=== PATIENT | female | born 1955 | race African-American/Black ===

== ENCOUNTER 2020-09-07 07:18 | Inpatient (IN) | payer MEDICARE ==
[2020-09-07] MEDS ORDERED: SODIUM CHLORIDE 0.9% 1,000 ML IV STA (07:20)
[2020-09-07 07:31] LABS: Glucose,Whole Blood 584 mg/dL (75-99)
[2020-09-07 07:50] LABS: Basophils % (A) 0 %; Eosinophils % (A) 0 %; HCT 43.7 % (34.0-46.0); HGB 13.1 gm/dL (11.4-16.0); Hypochromasia Marked; Lymphocytes # (A) 0.9 k/uL (1.0-4.8); Lymphocytes % (A) 7 %; MCHC 30.1 g/dL (31.0-37.0); Macrocytosis Slight; Mean Platelet Volume 8.8; Monocytes # (A) 0.3 k/uL (0-1.0); Monocytes % (A) 2 %; Neutrophils # (A) 11.7 k/uL (1.3-7.7); Neutrophils % (A) 89 %; Platelet Count 365 k/uL (150-450); RBC 4.24 m/uL (3.80-5.40); RDW 13.6 % (11.5-15.5); WBC 13.1 k/uL (3.8-10.6)
--- NOTE | 2020-09-07 07:52 | ED ---
General Adult HPI - General Chief complaint: Recheck/Abnormal Lab/Rx Stated complaint: hyperglycemia Time Seen by Provider: 09/07/20 07:19 Source: patient, RN notes reviewed, old records reviewed Mode of arrival: EMS Limitations: altered mental status - History of Present Illness Initial comments: 65-year-old female presenting with elevated blood sugar, nausea vomiting. Patient was transported by EMS, noted to be tachypneic, tachycardic and hypertensive. She states that her sugars have been running high over the past several days she's had nausea and vomiting. Detailed history is not possible secondary to patient's clinical status upon arrival. She is in moderate to severe distress. - Related Data Home Medications Medication Instructions Recorded Confirmed Atorvastatin [Lipitor] 20 mg PO HS 09/07/20 09/07/20 INSULIN ASPART (NovoLOG) [NovoLOG See Protocol SQ ACHS 09/07/20 09/07/20 (formulary)] Insulin Glargine [Lantus] 20 unit SQ HS 09/07/20 09/07/20 Losartan [Cozaar] 25 mg PO BID 09/07/20 09/07/20 Metoprolol Tartrate [Lopressor] 50 mg PO BID 09/07/20 09/07/20 Allergies Allergy/AdvReac Type Severity Reaction Status Date / Time No Known Allergies Allergy Verified 09/07/20 08:17 Review of Systems ROS Statement: Those systems with pertinent positive or pertinent negative responses have been documented in the HPI. ROS Other: All systems not noted in ROS Statement are negative. Past Medical History Past Medical History: Diabetes Mellitus History of Any Multi-Drug Resistant Organisms: None Reported Past Surgical History: No Surgical Hx Reported Smoking Status: Current every day smoker Past Alcohol Use History: None Reported Past Drug Use History: None Reported General Exam Limitations: no limitations General appearance: alert, in distress Head exam: Present: atraumatic, normocephalic Eye exam: Present: normal appearance, PERRL ENT exam: Present: mucous membranes dry Neck exam: Present: normal inspection. Absent: tenderness, meningismus Respiratory exam: Present: respiratory distress, other (Tachypnea With good air entry). Absent: wheezes Cardiovascular Exam: Present: normal rhythm, tachycardia GI/Abdominal exam: Present: soft. Absent: distended, tenderness, guarding Extremities exam: Present: normal inspection, normal capillary refill. Absent: pedal edema, calf tenderness Neurological exam: Present: alert. Absent: motor sensory deficit Skin exam: Present: warm, dry, intact. Absent: cyanosis, diaphoretic Course Vital Signs 09/07/20 09/07/20 09/07/20 07:29 07:50 08:18 Temperature 95.4 F L 96.7 F L Pulse Rate 94 94 Respiratory 26 H 32 H Rate Blood Pressure 204/81 210/78 O2 Sat by Pulse 100 100 Oximetry EKG Findings - EKG Comments: EKG Findings:: EKG: Normal sinus rhythm, biatrial enlargement, peak T waves in the precordial leads, rate of 95, OK interval 156, QRS duration 82, QTC [address] segment elevation. Medical Decision Making - Medical Decision Making 65-year-old female presenting with elevated blood sugar, nausea vomiting. History is limited because the patient is in extremis. Patient has significant lab abnormalities suggestive of severe DKA. She has an elevated blood glucose 620. She has a venous pH of 7.0. She has a nondetectable CO2, lactic acid 5.4. She has a mixed acidosis both lactic acidosis and diabetic ketoacidosis. Patient bolused with normal saline, started on to her cc an hour, started on insulin. She additionally does have a potassium of 6.5 which is treated with insulin and normal saline. I did discuss case with Dr. Nicholson who will admit. Additionally the pulmonary mlt is aware Dr. Fitzgerald patient will be admitted to the ICU. X-ray is clear, no focal pneumonia or acute findings. Repeat laboratory testing has been ordered. - Lab Data Result diagrams: 09/07/20 07:32 09/07/20 07:32 Lab Results 09/07/20 09/07/20 09/07/20 Range/Units 07:25 07:32 07:32 WBC 13.1 H (3.8-10.6) k/uL RBC 4.24 (3.80-5.40) m/uL Hgb 13.1 (11.4-16.0) gm/dL Hct 43.7 (34.0-46.0) % MCV 103.0 H (80.0-100.0) fL MCH 31.0 (25.0-35.0) pg MCHC 30.1 L (31.0-37.0) g/dL RDW 13.6 (11.5-15.5) % Plt Count 365 (150-450) k/uL MPV 8.8 Neutrophils % 89 % Lymphocytes % 7 % Monocytes % 2 % Eosinophils % 0 % Basophils % 0 % Neutrophils # 11.7 H (1.3-7.7) k/uL Lymphocytes # 0.9 L (1.0-4.8) k/uL Monocytes # 0.3 (0-1.0) k/uL Eosinophils # 0.0 (0-0.7) k/uL Basophils # 0.0 (0-0.2) k/uL Hypochromasia Marked Macrocytosis Slight PT (9.0-12.0) sec INR (<1.2) APTT (22.0-30.0) sec VBG pH 7.00 L* (7.31-7.41) VBG pCO2 14 L* (37-51) mmHg VBG HCO3 3 L* (24-28) mmol/L Sodium (137-145) mmol/L Potassium (3.5-5.1) mmol/L Chloride (98-107) mmol/L Carbon Dioxide (22-30) mmol/L Anion Gap mmol/L BUN (7-17) mg/dL Creatinine (0.52-1.04) mg/dL Est GFR (CKD-EPI)AfAm (>60 ml/min/1.73 sqM) Est GFR (CKD-EPI)NonAf (>60 ml/min/1.73 sqM) Glucose (74-99) mg/dL POC Glucose (mg/dL) 584 H (75-99) mg/dL POC Glu Skein Dyer ID Reyna Tello Plasma Lactic Acid Cassius (0.7-2.0) mmol/L Calcium (8.4-10.2) mg/dL Magnesium (1.6-2.3) mg/dL Total Bilirubin (0.2-1.3) mg/dL AST (14-36) U/L ALT (4-34) U/L Alkaline Phosphatase (38-126) U/L Troponin I (0.000-0.034) ng/mL Total Protein (6.3-8.2) g/dL Albumin (3.5-5.0) g/dL Acetone, Qual (Negative) 09/07/20 09/07/20 09/07/20 Range/Units 07:32 07:32 07:32 WBC (3.8-10.6) k/uL RBC (3.80-5.40) m/uL Hgb (11.4-16.0) gm/dL Hct (34.0-46.0) % MCV (80.0-100.0) fL MCH (25.0-35.0) pg MCHC (31.0-37.0) g/dL RDW (11.5-15.5) % Plt Count (150-450) k/uL MPV Neutrophils % % Lymphocytes % % Monocytes % % Eosinophils % % Basophils % % Neutrophils # (1.3-7.7) k/uL Lymphocytes # (1.0-4.8) k/uL Monocytes # (0-1.0) k/uL Eosinophils # (0-0.7) k/uL Basophils # (0-0.2) k/uL Hypochromasia Macrocytosis PT 9.3 (9.0-12.0) sec INR 0.8 (<1.2) APTT 20.8 L (22.0-30.0) sec VBG pH (7.31-7.41) VBG pCO2 (37-51) mmHg VBG HCO3 (24-28) mmol/L Sodium 138 (137-145) mmol/L Potassium 6.5 H* (3.5-5.1) mmol/L Chloride 105 (98-107) mmol/L Carbon Dioxide <5 L* (22-30) mmol/L Anion Gap mmol/L BUN 23 H (7-17) mg/dL Creatinine 1.07 H (0.52-1.04) mg/dL Est GFR (CKD-EPI)AfAm 64 (>60 ml/min/1.73 sqM) Est GFR (CKD-EPI)NonAf 55 (>60 ml/min/1.73 sqM) Glucose 622 H* (74-99) mg/dL POC Glucose (mg/dL) (75-99) mg/dL POC Glu Skein Dyer ID Plasma Lactic Acid Cassius 5.4 H* (0.7-2.0) mmol/L Calcium 9.8 (8.4-10.2) mg/dL Magnesium 2.7 H (1.6-2.3) mg/dL Total Bilirubin 0.4 (0.2-1.3) mg/dL AST 58 H (14-36) U/L ALT 36 H (4-34) U/L Alkaline Phosphatase 189 H (38-126) U/L Troponin I (0.000-0.034) ng/mL Total Protein 6.5 (6.3-8.2) g/dL Albumin 3.4 L (3.5-5.0) g/dL Acetone, Qual Positive (Negative) 09/07/20 09/07/20 Range/Units 07:32 08:56 WBC (3.8-10.6) k/uL RBC (3.80-5.40) m/uL Hgb (11.4-16.0) gm/dL Hct (34.0-46.0) % MCV (80.0-100.0) fL MCH (25.0-35.0) pg MCHC (31.0-37.0) g/dL RDW (11.5-15.5) % Plt Count (150-450) k/uL MPV Neutrophils % % Lymphocytes % % Monocytes % % Eosinophils % % Basophils % % Neutrophils # (1.3-7.7) k/uL Lymphocytes # (1.0-4.8) k/uL Monocytes # (0-1.0) k/uL Eosinophils # (0-0.7) k/uL Basophils # (0-0.2) k/uL Hypochromasia Macrocytosis PT (9.0-12.0) sec INR (<1.2) APTT (22.0-30.0) sec VBG pH (7.31-7.41) VBG pCO2 (37-51) mmHg VBG HCO3 (24-28) mmol/L Sodium (137-145) mmol/L Potassium (3.5-5.1) mmol/L Chloride (98-107) mmol/L Carbon Dioxide (22-30) mmol/L Anion Gap mmol/L BUN (7-17) mg/dL Creatinine (0.52-1.04) mg/dL Est GFR (CKD-EPI)AfAm (>60 ml/min/1.73 sqM) Est GFR (CKD-EPI)NonAf (>60 ml/min/1.73 sqM) Glucose (74-99) mg/dL POC Glucose (mg/dL) 555 H (75-99) mg/dL POC Glu Skein Dyer ID ZactgReyna gonzalez Plasma Lactic Acid Cassius (0.7-2.0) mmol/L Calcium (8.4-10.2) mg/dL Magnesium (1.6-2.3) mg/dL Total Bilirubin (0.2-1.3) mg/dL AST (14-36) U/L ALT (4-34) U/L Alkaline Phosphatase (38-126) U/L Troponin I 0.013 (0.000-0.034) ng/mL Total Protein (6.3-8.2) g/dL Albumin (3.5-5.0) g/dL Acetone, Qual (Negative) Critical Care Time Critical Care Time: Yes Total Critical Care Time: 35 Disposition Clinical Impression: Diabetic ketoacidosis, Hyperkalemia, Dehydration, Lactic acidosis Disposition: ADMITTED IP TO THIS [facility] Condition: Serious Is patient prescribed a controlled substance at d/c from ED?: No Referrals: None,Stated [Primary Care Provider] - 1-2 days Decision to Admit Reason: Admit from EC Decision Date: 09/07/20 Decision Time: 09:03
[2020-09-07] MEDS ORDERED: cefTRIAXone IN SWFI 1,000 MG/10 ML SYRINGE IVP STA (07:57)
[2020-09-07 08:02] LABS: Chloride 105 mmol/L (98-107)
[2020-09-07] MEDS ORDERED: SODIUM CHLORIDE 0.9% 1,000 ML IV ONE (08:03)
[2020-09-07 08:05] LABS: ALT 36 U/L (4-34); AST 58 U/L (14-36); African American GFR (CKD) 64 (>60 ml/min/1.73 sqM); Albumin 3.4 g/dL (3.5-5.0); Alkaline Phosphatase 189 U/L (38-126); Blood Urea Nitrogen 23 mg/dL (7-17); Calcium 9.8 mg/dL (8.4-10.2); Magnesium 2.7 mg/dL (1.6-2.3); Non-African American GFR(CKD) 55 (>60 ml/min/1.73 sqM); Sodium 138 mmol/L (137-145); Total Bilirubin 0.4 mg/dL (0.2-1.3); Total Protein 6.5 g/dL (6.3-8.2)
[2020-09-07 08:08] LABS: INR 0.8 (<1.2); Prothrombin Time 9.3 sec (9.0-12.0)
[2020-09-07 08:15] LABS: Partial Thromboplastin Time 20.8 sec (22.0-30.0)
[2020-09-07 08:25] LABS: Glucose 622 mg/dL (74-99); Potassium 6.5 mmol/L (3.5-5.1)
[2020-09-07 08:26] LABS: Carbon Dioxide <5 mmol/L (22-30)
--- NOTE | 2020-09-07 08:35 | XR ---
EXAMINATION TYPE: XR chest 1V portable DATE OF EXAM: 09/07/2020 COMPARISON: NONE HISTORY: Difficulty breathing TECHNIQUE: Single frontal view of the chest is obtained. FINDINGS: There is no focal air space opacity, pleural effusion, or pneumothorax seen. The cardiac silhouette size is within normal limits. The osseous structures are intact. There are overlying gena ds. Aorta is dense. IMPRESSION: No acute process. Follow-up as indicated.
[2020-09-07] MEDS ORDERED: INSULIN REGULAR BOLUS (FROM DRIP BAG) IV ONE (08:38)
[2020-09-07 08:55] LABS: Amorphous Sediment,Urine Few /hpf; Appearance,Urine Cloudy (Clear); Bilirubin,Urine Negative (Negative); Blood,Urine Trace (Negative); Color,Urine Colorless; Glucose,Urine (UA) 4+ (Negative); Leukocyte Esterase,Urine Negative (Negative); Nitrite,Urine Negative (Negative); PH, Urine 5.5 (5.0-8.0); Protein,Urine 2+ (Negative); RBC,Urine <1 /hpf (0-5); Specific Gravity,Urine 1.017 (1.001-1.035); Urobilinogen,Urine <2.0 mg/dL (<2.0); WBC,Urine 1 /hpf (0-5)
[2020-09-07 08:57] LABS: Glucose,Whole Blood 555 mg/dL (75-99)
[2020-09-07] MEDS: SODIUM CHLORIDE 0.9% 1,000 ML IV SCH (08:57)
[2020-09-07] MEDS: INSULIN REGULAR 100 UNIT in SODIUM CHLORIDE 0.9% 100 ML IV SCH (09:09)
[2020-09-07 09:18] LABS: Ketones,Urine 4+ (Negative)
[2020-09-07 09:53] LABS: Glucose,Whole Blood 503 mg/dL (75-99)
[2020-09-07 10:32] LABS: African American GFR (CKD) 71 (>60 ml/min/1.73 sqM); Blood Urea Nitrogen 22 mg/dL (7-17); Calcium 8.7 mg/dL (8.4-10.2); Chloride 114 mmol/L (98-107); Non-African American GFR(CKD) 61 (>60 ml/min/1.73 sqM); Potassium 5.4 mmol/L (3.5-5.1); Sodium 143 mmol/L (137-145)
[2020-09-07 10:37] LABS: Glucose 559 mg/dL (74-99)
[2020-09-07 10:38] LABS: Carbon Dioxide <5 mmol/L (22-30)
[2020-09-07 10:57] LABS: Glucose,Whole Blood 520 mg/dL (75-99)
--- NOTE | 2020-09-07 11:46 | P.CNPUL ---
History of Present Illness Consult date: 09/07/20 Reason for consult: dyspnea, cough, hypoxemia, pneumonia Chief complaint: ongoing nausea and vomiting with uncontrolled hyperglycemia History of present illness: patient is a 65-year-old with prior medical history of hypertension hypertensive cardiovascular disease and diabetes mellitus and dyslipidemia, for 2 days pat ient is not feeling well complaining of ongoing nausea and vomiting sugars have been running high she has been also having problems or shortness of breath cough which is dry and nonproductive symptoms of progressive she came into the hospital for further evaluation, she was noted to be hypoxic on 2 L nasal cannula, blood pressure is running high marginally, blood sugars very high over 600, patient has acetone positive, appears to be in diabetic ketoacidosis, she is a long-term smoker smokes about half to one pack a day every day, Patient has significant lab abnormalities suggestive of severe DKA. She has an elevated blood glucose 620. She has a venous pH of 7.0. She has a nondetectable CO2, lactic acid 5.4. She has a mixed acidosis both lactic acidosis and diabetic ketoacidosis. Patient bolused with normal saline, started on insulin. She additionally does have a potassium of 6.5 which is treated with insulin and normal saline. patient [place] testing came back positive, she is not aware of any exposure, she has her first vaccine 1 week ago Review of Systems All systems: negative Past Medical History Past Medical History: Diabetes Mellitus History of Any Multi-Drug Resistant Organisms: None Reported Past Surgical History: No Surgical Hx Reported Smoking Status: Current every day smoker Past Alcohol Use History: None Reported Past Drug Use History: None Reported Medications and Allergies Home Medications Medication Instructions Recorded Confirmed Type Atorvastatin [Lipitor] 20 mg PO HS 09/07/20 09/07/20 History INSULIN ASPART (NovoLOG) [NovoLOG See Protocol SQ ACHS 09/07/20 09/07/20 History (formulary)] Insulin Glargine [Lantus] 20 unit SQ HS 09/07/20 09/07/20 History Losartan [Cozaar] 25 mg PO BID 09/07/20 09/07/20 History Metoprolol Tartrate [Lopressor] 50 mg PO BID 09/07/20 09/07/20 History Allergies Allergy/AdvReac Type Severity Reaction Status Date / Time No Known Allergies Allergy Verified 09/07/20 08:17 Physical Exam Vitals: Vital Signs Temp Pulse Resp BP Pulse Ox 09/07/20 11:05 96.9 F L 09/07/20 10:30 97 20 175/65 100 09/07/20 09:37 95.4 F L 09/07/20 09:11 97 30 H 197/77 100 09/07/20 08:18 94 32 H 210/78 100 09/07/20 07:50 96.7 F L 09/07/20 07:29 95.4 F L 94 26 H 204/81 100 Intake and Output 09/06/20 09/07/20 09/07/20 22:59 06:59 14:59 Other: Weight 49.895 kg - Constitutional General appearance: average body habitus, cooperative, disheveled, mild distress - EENT Eyes: PERRLA Ears: bilateral: normal - Neck Carotids: bilateral: upstroke normal Thyroid: bilateral: normal size - Respiratory Respiratory: bilateral: CTA - Cardiovascular Rhythm: regular Heart sounds: normal: S1, S2 - Gastrointestinal General gastrointestinal: normal bowel sounds, soft - Integumentary Integumentary: normal turgor - Neurologic Neurologic: CNII-XII intact - Musculoskeletal Musculoskeletal: gait normal, generalized weakness, strength equal bilaterally - Psychiatric Psychiatric: A&O x's 3, appropriate affect, intact judgment & insight Results - Laboratory Findings CBC and BMP: 09/07/20 07:32 09/07/20 09:51 PT/INR, D-dimer PT 9.3 sec (9.0-12.0) 09/07/20 07:32 INR 0.8 (<1.2) 09/07/20 07:32 Abnormal lab findings: Abnormal Labs 09/07/20 09/07/20 09/07/20 07:25 07:29 07:32 WBC MCV MCHC Neutrophils # Lymphocytes # APTT VBG pH 7.00 L* VBG pCO2 14 L* VBG HCO3 3 L* Potassium Chloride Carbon Dioxide BUN Creatinine Glucose POC Glucose (mg/dL) 584 H Plasma Lactic Acid Cassius Magnesium AST ALT Alkaline Phosphatase Albumin Urine Appearance Cloudy H Urine Protein 2+ H Urine Glucose (UA) 4+ H Urine Ketones 4+ H Urine Blood Trace H Amorphous Sediment Few H Coronavirus (PCR) 09/07/20 09/07/20 09/07/20 07:32 07:32 07:32 WBC 13.1 H MCV 103.0 H MCHC 30.1 L Neutrophils # 11.7 H Lymphocytes # 0.9 L APTT 20.8 L VBG pH VBG pCO2 VBG HCO3 Potassium 6.5 H* Chloride Carbon Dioxide <5 L* BUN 23 H Creatinine 1.07 H Glucose 622 H* POC Glucose (mg/dL) Plasma Lactic Acid Cassius Magnesium 2.7 H AST 58 H ALT 36 H Alkaline Phosphatase 189 H Albumin 3.4 L Urine Appearance Urine Protein Urine Glucose (UA) Urine Ketones Urine Blood Amorphous Sediment Coronavirus (PCR) 09/07/20 09/07/20 09/07/20 07:32 08:23 08:56 WBC MCV MCHC Neutrophils # Lymphocytes # APTT VBG pH VBG pCO2 VBG HCO3 Potassium Chloride Carbon Dioxide BUN Creatinine Glucose POC Glucose (mg/dL) 555 H Plasma Lactic Acid Cassius 5.4 H* Magnesium AST ALT Alkaline Phosphatase Albumin Urine Appearance Urine Protein Urine Glucose (UA) Urine Ketones Urine Blood Amorphous Sediment Coronavirus (PCR) Detected A 09/07/20 09/07/20 09/07/20 09:51 09:52 10:56 WBC MCV MCHC Neutrophils # Lymphocytes # APTT VBG pH VBG pCO2 VBG HCO3 Potassium 5.4 H Chloride 114 H Carbon Dioxide <5 L* BUN 22 H Creatinine Glucose 559 H* POC Glucose (mg/dL) 503 H 520 H Plasma Lactic Acid Cassius Magnesium AST ALT Alkaline Phosphatase Albumin Urine Appearance Urine Protein Urine Glucose (UA) Urine Ketones Urine Blood Amorphous Sediment Coronavirus (PCR) - Diagnostic Findings Chest x-ray: report reviewed, image reviewed Assessment and Plan Assessment: severe sepsis Hypertensive urgency in emergency Diabetic ketoacidosis Acute hypoxic respiratory failure COVID-19 pneumonia Mildly elevated liver enzymes Plan: resumed patient antihypertensive agent If cannot tolerate by mouth than we will start IV antihypertensive IV hydration per protocol Insulin drip Glucose monitoring per protocol Keep nothing by mouth Supplemental oxygen Deep breathing exercises incentive spirometry IV Decadron Check d-dimer and limited parameters IV REMdesivir for 5 days Lovenox 30 mg subcu every 12 Agree with admitted into ICU Time with Patient: Greater than 30
[2020-09-07 11:56] LABS: Glucose,Whole Blood 429 mg/dL (75-99)
[2020-09-07 11:59] LABS: Phosphorus 6.7 mg/dL (2.5-4.5)
[2020-09-07 12:01] LABS: African American GFR (CKD) 69 (>60 ml/min/1.73 sqM); Blood Urea Nitrogen 22 mg/dL (7-17); C Reactive Protein 4.1 mg/dL (<1.0); Chloride 114 mmol/L (98-107); Non-African American GFR(CKD) 60 (>60 ml/min/1.73 sqM); Potassium 5.9 mmol/L (3.5-5.1); Sodium 143 mmol/L (137-145)
[2020-09-07 12:07] LABS: Carbon Dioxide <5 mmol/L (22-30); Glucose 523 mg/dL (74-99)
[2020-09-07 12:50] LABS: Glucose,Whole Blood 446 mg/dL (75-99)
[2020-09-07] MEDS ORDERED: REMDESIVIR 200 MG in SODIUM CHLORIDE 0.9% 250 ML IVPB ONE (13:00)
[2020-09-07] MEDS: ENOXAPARIN 30 MG/0.3 ML SYRINGE SQ SCH ×2 (13:35→23:53)
[2020-09-07] MEDS: DEXAMETHASONE SOD PHOSPHATE 10 MG/ML 1 ML VIAL IV SCH (13:35)
[2020-09-07 15:03] LABS: Glucose,Whole Blood 377 mg/dL (75-99)
[2020-09-07 16:07] LABS: Glucose,Whole Blood 339 mg/dL (75-99)
[2020-09-07 16:58] LABS: African American GFR (CKD) >90 (>60 ml/min/1.73 sqM); Blood Urea Nitrogen 22 mg/dL (7-17); Chloride 118 mmol/L (98-107); Glucose 373 mg/dL (74-99); Non-African American GFR(CKD) 87 (>60 ml/min/1.73 sqM); Phosphorus 3.6 mg/dL (2.5-4.5); Potassium 5.2 mmol/L (3.5-5.1); Sodium 143 mmol/L (137-145)
[2020-09-07 17:03] LABS: Anion Gap 16 mmol/L
[2020-09-07 17:14] LABS: Carbon Dioxide 9 mmol/L (22-30)
[2020-09-07 18:47] LABS: Glucose,Whole Blood 251 mg/dL (75-99)
[2020-09-07] MEDS: D5-0.45% NACL WITH KCL 20MEQ/L 1,000 ML IV SCH (18:54)
[2020-09-07 19:01] LABS: C Reactive Protein 5.3 mg/dL (<1.0)
--- NOTE | 2020-09-07 20:09 | HP ---
HISTORY AND PHYSICAL This is a 65-year-old with dyspnea and cough, congestion, shortness of breath, pneumonia, nausea and vomiting, throwing up over the past 2 to 3 days. Sugars have been running super high. She came in with DKA with sugars over 600, severe diabetic ketoacidosis and positive COVID and nicotine addiction and gastroenteritis possibly secondary to COVID. She had metabolic acidosis, pH of 7, nondetectable CO2, lactic acid 5.4. She has lactic acidosis, diabetic ketoacidosis. She was given multiple boluses of normal saline treatment for hyperkalemia with the DKA protocol. Started on remdesivir by Infectious Disease for COVID. REVIEW OF SYSTEMS: Fourteen-point review of systems otherwise is negative. She has been a current everyday smoker for many years. She has type 2 diabetes, she says. She takes insulin at home, Lipitor 20 daily, NovoLog before meals and at bedtime, Lantus 20 units daily, Cozaar 25 b.i.d., Lopressor 50 b.i.d. ALLERGIES: NEGATIVE. PHYSICAL EXAMINATION: VITAL SIGNS: Temperature 96, 97, pulse 94 to 97, respiratory rate 20 to 30, blood pressure is 175 to 204 over 60s to 80s, oxygen saturation 100%. She is awake, alert, giving appropriate answers. SKIN: Dry. Skin turgor decreased. mucous membranes CARDIOVASCULAR: S1, S2. LUNGS: Clear. NEUROLOGIC: Cranial nerves intact. MUSCULOSKELETAL: Range of motion x4 good. PSYCH: Fair mood and affect. LABS: White count 13.1, hemoglobin 13.1. Latest sodium is 143, potassium 5.5. Positive for Coronavirus. Lactic acid 5.4. ASSESSMENT: 1. Severe sepsis. 2. Lactic acidosis. 3. Diabetic ketoacidosis. 4. Hypertensive urgency. 5. Acute hypoxemic respiratory failure secondary to COVID-19 pneumonia. 6. Mild elevated liver function tests. Started on remdesivir treatment. Blood pressure medications will be given. Rehydrate. DKA protocol. Advance diet as tolerated if she stops vomiting. Prognosis guarded. MMODL / IJN: [id number] /
[2020-09-07 21:28] LABS: Glucose,Whole Blood 308 mg/dL (75-99)
--- NOTE | 2020-09-07 22:34 | CONS ---
CONSULTATION DATE OF SERVICE: 09/07/2020. REASON FOR CONSULTATION: COVID-19 infection. HISTORY OF PRESENT ILLNESS: The patient is a 65-year-old female presenting to the [facility] ER for evaluation of nausea, vomiting, and elevated blood sugar. The patient apparently mentioned she did get her 2nd dose of Moderna about a week ago and mentioned symptoms started after she has received the vaccine. The patient did have a fever and also complaining of nausea, vomiting, diarrhea. No significant abdominal pain though. No chest pain or shortness of breath. Did have minimal cough, not bringing up any sputum. With these symptoms, the patient has been evaluated by the ER physician. On arrival to the ER, the patient was hypothermic with a temperature of 95.4, currently on the normal temperature 96.9. She was tachypneic. Unfortunately O2 sats on room air not documented. Currently 100% on 2 L nasal cannula. Patient workup in the ER shows white count 13.1 with a left shift and for nephropenia. A D-dimer was 5.68. Procalcitonin 0.95, lactic acid 5.1. Did have elevated blood sugars and has been diagnosed with DKA. Urine was negative. Pineda PCR came back positive. The patient did have a chest x-ray, no acute pulmonary process. The patient has been admitted to ICU. Infectious Disease was consulted for further management of her Covid infection. REVIEW OF SYSTEMS: Positive points have been mentioned in HPI. Rest of systems are negative. PAST MEDICAL HISTORY: Diabetes mellitus. PAST SURGICAL HISTORY: No surgeries. SOCIAL HISTORY: Current everyday smoker. No drinking or drug use. FAMILY HISTORY: No pertinent findings noticed. ALLERGIES: No known drug allergies. MEDICATIONS: The patient is currently on Lipitor, Dulcolax, Lovenox, insulin protocol, Remdesivir, and IV fluid. PHYSICAL EXAMINATION: Her blood pressure is 197/77, pulse of 97, temperature is 97.7. She is 100% on 2 L nasal cannula. General description: The patient is a middle-aged female lying in bed in no distress. HEENT examination: No pallor or scleral icterus. Oral mucous membranes dry. NECK: Trachea central. No thyromegaly. LUNGS: Unlabored breathing. Clear to auscultation with no wheeze or crackles. HEART S1, S2. Regular rate and rhythm. ABDOMEN: Soft, no tenderness. No guarding. No rigidity. EXTREMITIES: No edema of the feet. SKIN: No rash or mass palpable. NEUROLOGICAL: Patient is awake, alert, oriented times three. Mood and affect normal. LABS: Hemoglobin 13.1, white count 13.1, D. dimer 5.68, BUN of 22, creatinine 1.0, potassium is 5.9. Blood sugars are elevated. LDH of 1061. Urine is negative. DIAGNOSTIC IMPRESSION AND PLAN: Patient admitted to the hospital with acute nausea, vomiting, diarrhea, could be more likely related to DKA in this patient also having a positive COVID test and some respiratory symptoms. Though chest x-ray report was negative for any acute infiltrate. Unfortunately no O2 saturation documented on room air and the patient was hypothermic on presentation to the hospital. Concern for COVID-19 infection. Contributing to her possible DKA. PLAN: 1. Patient started on Remdesivir to see clinical response to it. 2. Patient to continue with dexamethasone, Lovenox, zinc and ascorbic acid. 3. Droplet isolation and respiratory support. 4. We will follow on clinical condition and further adjust medication if needed. Thank you for this consultation. We will follow this patient along with you. MMODL / IJN: [id number] /
[2020-09-07 23:41] LABS: Glucose,Whole Blood 326 mg/dL (75-99)
[2020-09-07] MEDS: ATORVASTATIN 20 MG TAB PO SCH (23:52)
[2020-09-07] MEDS: METOPROLOL TARTRATE 50 MG TAB PO SCH (23:53)
[2020-09-08 00:58] LABS: Glucose,Whole Blood 262 mg/dL (75-99)
[2020-09-08 01:32] LABS: Ferritin 627.7 ng/mL (10.0-291.0)
[2020-09-08 02:03] LABS: Glucose,Whole Blood 186 mg/dL (75-99)
[2020-09-08] MEDS: D5-0.45% NACL WITH KCL 20MEQ/L 1,000 ML IV SCH ×3 (02:12→17:05)
[2020-09-08 03:12] LABS: Glucose,Whole Blood 134 mg/dL (75-99)
[2020-09-08] MEDS: INSULIN REGULAR 100 UNIT in SODIUM CHLORIDE 0.9% 100 ML IV SCH (03:14)
[2020-09-08 04:13] LABS: Glucose,Whole Blood 115 mg/dL (75-99)
[2020-09-08 04:50] LABS: Basophils % (A) 0 %; Eosinophils # (A) 0.3 k/uL (0-0.7); Eosinophils % (A) 2 %; HCT 27.9 % (34.0-46.0); Hypochromasia Moderate; Lymphocytes # (A) 2.1 k/uL (1.0-4.8); Lymphocytes % (A) 13 %; MCH 31.6 pg (25.0-35.0); MCHC 32.1 g/dL (31.0-37.0); MCV 98.3 fL (80.0-100.0); Mean Platelet Volume 7.9; Monocytes # (A) 0.6 k/uL (0-1.0); Monocytes % (A) 3 %; Neutrophils # (A) 13.2 k/uL (1.3-7.7); Platelet Count 253 k/uL (150-450); RBC 2.84 m/uL (3.80-5.40); RDW 14.1 % (11.5-15.5); WBC 16.3 k/uL (3.8-10.6)
[2020-09-08 05:10] LABS: Glucose,Whole Blood 127 mg/dL (75-99)
[2020-09-08 05:20] LABS: ALT 28 U/L (4-34); AST 64 U/L (14-36); African American GFR (CKD) >90 (>60 ml/min/1.73 sqM); Albumin 1.9 g/dL (3.5-5.0); Alkaline Phosphatase 104 U/L (38-126); Anion Gap 1 mmol/L; Blood Urea Nitrogen 16 mg/dL (7-17); Carbon Dioxide 15 mmol/L (22-30); Chloride 118 mmol/L (98-107); Non-African American GFR(CKD) >90 (>60 ml/min/1.73 sqM); Sodium 134 mmol/L (137-145); Total Bilirubin <0.1 mg/dL (0.2-1.3); Total Protein 4.1 g/dL (6.3-8.2)
[2020-09-08 05:38] LABS: Glucose 563 mg/dL (74-99); Potassium 6.3 mmol/L (3.5-5.1)
[2020-09-08 06:04] LABS: Glucose,Whole Blood 127 mg/dL (75-99)
[2020-09-08 06:26] LABS: African American GFR (CKD) >90 (>60 ml/min/1.73 sqM); Anion Gap 0 mmol/L; Blood Urea Nitrogen 19 mg/dL (7-17); Calcium 8.1 mg/dL (8.4-10.2); Carbon Dioxide 21 mmol/L (22-30); Chloride 119 mmol/L (98-107); Glucose 125 mg/dL (74-99); Non-African American GFR(CKD) >90 (>60 ml/min/1.73 sqM); Potassium 4.7 mmol/L (3.5-5.1); Sodium 140 mmol/L (137-145)
[2020-09-08] MEDS: SODIUM CHLORIDE 0.9% 1,000 ML IV SCH ×4 (07:27→17:06)
[2020-09-08 07:42] LABS: Glucose,Whole Blood 191 mg/dL (75-99)
[2020-09-08] MEDS: ENOXAPARIN 30 MG/0.3 ML SYRINGE SQ SCH ×2 (08:24→20:23)
[2020-09-08] MEDS: METOPROLOL TARTRATE 50 MG TAB PO SCH ×2 (08:24→20:23)
[2020-09-08] MEDS: INSULIN ASPART (NovoLOG) 100 UNIT/ML VIAL SQ SCH ×7 (08:24→20:21)
[2020-09-08] MEDS: DEXAMETHASONE SOD PHOSPHATE 10 MG/ML 1 ML VIAL IV SCH (08:24)
[2020-09-08] MEDS: INSULIN DETEMIR (LEVEMIR) 100 UNIT/ML SYR SQ SCH (08:53)
[2020-09-08 12:58] LABS: Glucose,Whole Blood 223 mg/dL (75-99)
[2020-09-08 13:13] VITALS: BMI 17.2
[2020-09-08] MEDS: ZINC SULFATE 220 MG CAP PO SCH (13:25)
[2020-09-08] MEDS: REMDESIVIR 100 MG in SODIUM CHLORIDE 0.9% 250 ML IVPB SCH (13:25)
--- NOTE | 2020-09-08 13:55 | PN ---
PROGRESS NOTE A 65-year-old white female remains on Decadron. She remdesivir, Lovenox and zinc for COVID. She states her breathing is somewhat improving. She has been transitioned to oral insulin after DKA protocol has been done. Her gap was closed. Her pulse is 67, respiratory rate 16 to 18, blood pressure is 110 to 140s over 60s, saturating 100% on 2 L. CARDIOVASCULAR: S1, S2. GI: Soft. HEMATOLOGY: Negative Homans. PSYCH: Fair mood and affect. Plan is continue current treatments with remdesivir for COVID day 3 and continue on her regular medications she takes at home for diabetes. Prognosis is guarded. MMODL / IJN: [id number] /
--- NOTE | 2020-09-08 16:07 | P.PN ---
Subjective Progress Note Date: 09/08/20 (Critical care time 35 minutes) Principal diagnosis: severe sepsis Hypertensive urgency in emergency Diabetic ketoacidosis Acute hypoxic respiratory failure COVID-19 pneumonia Mildly elevated liver enzymes 09/08/2020, patient seen eval examined during the rounds labs reviewed medications reviewed care plan discussed, saw her shortness of breath slightly better patient remains on 2 L oxygen patient is actively getting therapy for COVID-19 pneumonia and diabetic ketoacidosis, and saturation improved to 100% on 2 L nasal cannula hemodynamic status stable 150/73 respiratory rate normal, absent reviewed white cell count is elevated to 16,000 hemoglobin drop down to 9 hematocrit 27 likely due to aggressive rehydration and dilutional affect, lactic acid has been normalized, but cultures no growth so far, he remains on Lovenox along with insulin, REMdesivir and dexamethasone patient is a 65-year-old with prior medical history of hypertension hypertensive cardiovascular disease and diabetes mellitus and dyslipidemia, for 2 days patient is not feeling well complaining of ongoing nausea and vomiting sugars have been running high she has been also having problems or shortness of breath cough which is dry and nonproductive symptoms of progressive she came into the hospital for further evaluation, she was noted to be hypoxic on 2 L nasal cannula, blood pressure is running high marginally, blood sugars very high over 600, patient has acetone positive, appears to be in diabetic ketoacidosis, she is a long-term smoker smokes about half to one pack a day every day, Patient has significant lab abnormalities suggestive of severe DKA. She has an elevated blood glucose 620. She has a venous pH of 7.0. She has a nondetectable CO2, lactic acid 5.4. She has a mixed acidosis both lactic acidosis and diabetic ketoacidosis. Patient bolused with normal saline, started on insulin. She additionally does have a potassium of 6.5 which is treated with insulin and n ormal saline. patient Brenda testing came back positive, she is not aware of any exposure, she has her first vaccine 1 week ago Objective - Vital Signs Vital signs: Vital Signs Temp 98.3 F 09/08/20 08:00 Pulse 73 09/08/20 15:00 Resp 18 09/08/20 15:27 BP 151/73 09/08/20 15:00 Pulse Ox 100 09/08/20 15:00 Intake & Output 09/07/20 09/08/20 09/08/20 18:59 06:59 18:59 Intake Total 107.985 Balance 107.985 Weight 49.895 kg 49.895 kg Intake: Intake, IV Titration 107.985 Amount Insulin Regular 100 unit 107.985 In Sodium Chloride 0.9% 100 ml @ 0.1 UNITS/KG/HR 5.039 mls/hr IV .[id number] [facility] Rx#:[id number] - Exam - Constitutional General appearance: average body habitus, cooperative, disheveled, mild distress - EENT Eyes: PERRLA Ears: bilateral: normal - Neck Carotids: bilateral: upstroke normal Thyroid: bilateral: normal size - Respiratory Respiratory: bilateral: CTA - Cardiovascular Rhythm: regular Heart sounds: normal: S1, S2 - Gastrointestinal General gastrointestinal: normal bowel sounds, soft - Integumentary Integumentary: normal turgor - Neurologic Neurologic: CNII-XII intact - Musculoskeletal Musculoskeletal: gait normal, generalized weakness, strength equal bilaterally - Psychiatric Psychiatric: A&O x's 3, appropriate affect, intact judgment & insight - Labs CBC & Chem 7: 09/08/20 04:29 09/08/20 05:49 Labs: Abnormal Lab Results - Last 24 Hours (Table) 09/07/20 09/07/20 09/07/20 Range/Units 11:19 16:04 16:32 WBC (3.8-10.6) k/uL RBC (3.80-5.40) m/uL Hgb (11.4-16.0) gm/dL Hct (34.0-46.0) % Neutrophils # (1.3-7.7) k/uL Sodium (137-145) mmol/L Potassium 5.2 H (3.5-5.1) mmol/L Chloride 118 H (98-107) mmol/L Carbon Dioxide 9 L* (22-30) mmol/L BUN 22 H (7-17) mg/dL Creatinine (0.52-1.04) mg/dL Glucose 373 H (74-99) mg/dL POC Glucose (mg/dL) 339 H (75-99) mg/dL Calcium (8.4-10.2) mg/dL Ferritin 627.7 H (10.0-291.0) ng/mL Total Bilirubin (0.2-1.3) mg/dL AST (14-36) U/L Lactate Dehydrogenase (313-618) U/L C-Reactive Protein (<1.0) mg/dL Total Protein (6.3-8.2) g/dL Albumin (3.5-5.0) g/dL 09/07/20 09/07/20 09/07/20 Range/Units 16:32 18:46 21:26 WBC (3.8-10.6) k/uL RBC (3.80-5.40) m/uL Hgb (11.4-16.0) gm/dL Hct (34.0-46.0) % Neutrophils # (1.3-7.7) k/uL Sodium (137-145) mmol/L Potassium (3.5-5.1) mmol/L Chloride (98-107) mmol/L Carbon Dioxide (22-30) mmol/L BUN (7-17) mg/dL Creatinine (0.52-1.04) mg/dL Glucose (74-99) mg/dL POC Glucose (mg/dL) 251 H 308 H (75-99) mg/dL Calcium (8.4-10.2) mg/dL Ferritin (10.0-291.0) ng/mL Total Bilirubin (0.2-1.3) mg/dL AST (14-36) U/L Lactate Dehydrogenase 1201 H (313-618) U/L C-Reactive Protein 5.3 H (<1.0) mg/dL Total Protein (6.3-8.2) g/dL Albumin (3.5-5.0) g/dL 09/07/20 09/08/20 09/08/20 Range/Units 23:40 00:57 02:01 WBC (3.8-10.6) k/uL RBC (3.80-5.40) m/uL Hgb (11.4-16.0) gm/dL Hct (34.0-46.0) % Neutrophils # (1.3-7.7) k/uL Sodium (137-145) mmol/L Potassium (3.5-5.1) mmol/L Chloride (98-107) mmol/L Carbon Dioxide (22-30) mmol/L BUN (7-17) mg/dL Creatinine (0.52-1.04) mg/dL Glucose (74-99) mg/dL POC Glucose (mg/dL) 326 H 262 H 186 H (75-99) mg/dL Calcium (8.4-10.2) mg/dL Ferritin (10.0-291.0) ng/mL Total Bilirubin (0.2-1.3) mg/dL AST (14-36) U/L Lactate Dehydrogenase (313-618) U/L C-Reactive Protein (<1.0) mg/dL Total Protein (6.3-8.2) g/dL Albumin (3.5-5.0) g/dL 09/08/20 09/08/20 09/08/20 Range/Units 03:10 04:11 04:29 WBC 16.3 H (3.8-10.6) k/uL RBC 2.84 L (3.80-5.40) m/uL Hgb 9.0 L D (11.4-16.0) gm/dL Hct 27.9 L (34.0-46.0) % Neutrophils # 13.2 H (1.3-7.7) k/uL Sodium (137-145) mmol/L Potassium (3.5-5.1) mmol/L Chloride (98-107) mmol/L Carbon Dioxide (22-30) mmol/L BUN (7-17) mg/dL Creatinine (0.52-1.04) mg/dL Glucose (74-99) mg/dL POC Glucose (mg/dL) 134 H 115 H (75-99) mg/dL Calcium (8.4-10.2) mg/dL Ferritin (10.0-291.0) ng/mL Total Bilirubin (0.2-1.3) mg/dL AST (14-36) U/L Lactate Dehydrogenase (313-618) U/L C-Reactive Protein (<1.0) mg/dL Total Protein (6.3-8.2) g/dL Albumin (3.5-5.0) g/dL 09/08/20 09/08/20 09/08/20 Range/Units 04:29 05:08 05:49 WBC (3.8-10.6) k/uL RBC (3.80-5.40) m/uL Hgb (11.4-16.0) gm/dL Hct (34.0-46.0) % Neutrophils # (1.3-7.7) k/uL Sodium 134 L (137-145) mmol/L Potassium 6.3 H* (3.5-5.1) mmol/L Chloride 118 H 119 H (98-107) mmol/L Carbon Dioxide 15 L 21 L (22-30) mmol/L BUN 19 H (7-17) mg/dL Creatinine 0.44 L 0.51 L (0.52-1.04) mg/dL Glucose 563 H* 125 H (74-99) mg/dL POC Glucose (mg/dL) 127 H (75-99) mg/dL Calcium 7.0 L 8.1 L (8.4-10.2) mg/dL Ferritin (10.0-291.0) ng/mL Total Bilirubin <0.1 L (0.2-1.3) mg/dL AST 64 H (14-36) U/L Lactate Dehydrogenase (313-618) U/L C-Reactive Protein (<1.0) mg/dL Total Protein 4.1 L (6.3-8.2) g/dL Albumin 1.9 L (3.5-5.0) g/dL 09/08/20 09/08/20 09/08/20 Range/Units 06:02 07:39 12:57 WBC (3.8-10.6) k/uL RBC (3.80-5.40) m/uL Hgb (11.4-16.0) gm/dL Hct (34.0-46.0) % Neutrophils # (1.3-7.7) k/uL Sodium (137-145) mmol/L Potassium (3.5-5.1) mmol/L Chloride (98-107) mmol/L Carbon Dioxide (22-30) mmol/L BUN (7-17) mg/dL Creatinine (0.52-1.04) mg/dL Glucose (74-99) mg/dL POC Glucose (mg/dL) 127 H 191 H 223 H (75-99) mg/dL Calcium (8.4-10.2) mg/dL Ferritin (10.0-291.0) ng/mL Total Bilirubin (0.2-1.3) mg/dL AST (14-36) U/L Lactate Dehydrogenase (313-618) U/L C-Reactive Protein (<1.0) mg/dL Total Protein (6.3-8.2) g/dL Albumin (3.5-5.0) g/dL Microbiology - Last 24 Hours (Table) 09/07/20 11:19 Blood Culture - Preliminary Blood No Growth after 24 hours Assessment and Plan Assessment: severe sepsis Hypertensive urgency and emergency Diabetic ketoacidosis Acute hypoxic respiratory failure COVID-19 pneumonia Mildly elevated liver enzymes Plan: resumed patient antihypertensive agent with that blood pressure continued to improve Will monitor and observe off of IV antihypertensive IV hydration per protocol Insulin drip Ammann can be switched to sliding scale insulin and her home insulin regime Glucose monitoring per protocol Advanced diet as tolerated Supplemental oxygen Deep breathing exercises incentive spirometry IV Decadron IV REMdesivir for 5 days Lovenox 30 mg subcu every 12 Once off of insulin drip can be a stepdown to MedSurg with telemetry or se lective care Time with Patient: Greater than 30
[2020-09-08 17:13] LABS: Glucose,Whole Blood 105 mg/dL (75-99)
[2020-09-08 20:22] LABS: Glucose,Whole Blood 76 mg/dL (75-99)
[2020-09-08] MEDS: ATORVASTATIN 20 MG TAB PO SCH (20:23)
[2020-09-08] MEDS: ACETAMINOPHEN TAB 325 MG TAB PO PRN (20:24)
[2020-09-09 00:08] LABS: Glucose,Whole Blood 58 mg/dL (75-99)
[2020-09-09 00:34] LABS: Glucose,Whole Blood 84 mg/dL (75-99)
--- NOTE | 2020-09-09 02:21 | PN ---
PROGRESS NOTE DATE OF SERVICE: 08/08/2020 REASON FOR FOLLOWUP: COVID-19 infection. INTERVAL HISTORY: Patient is currently afebrile. The patient is breathing comfortably currently on room air. The patient denies having any chest pain. No shortness of breath or cough. No further nausea, vomiting, abdominal pain or diarrhea. PHYSICAL EXAMINATION: Blood pressure 117/64, pulse of 67, temperature 98.5. She is 100% on 2 L nasal cannula. General description is an elderly female lying in bed in no distress. Respiratory system: Unlabored breathing, clear to auscultation anteriorly. Heart S1, S2. Regular rate and rhythm. Abdomen soft, no tenderness. LABS: No new labs have been obtained today. DIAGNOSTIC IMPRESSION AND PLAN: Patient with acute COVID-19 infection. No significant pneumonia and no hypoxemia. Treatment mostly supportive. infection systemic antibiotic therapy. MMODL / IJN: [id number] /
[2020-09-09 03:01] LABS: Glucose,Whole Blood 158 mg/dL (75-99)
[2020-09-09 05:09] LABS: Glucose,Whole Blood 179 mg/dL (75-99)
[2020-09-09 07:13] LABS: Glucose,Whole Blood 222 mg/dL (75-99)
[2020-09-09 09:03] LABS: Basophils % (A) 0 %; Eosinophils % (A) 0 %; HCT 31.9 % (34.0-46.0); HGB 9.9 gm/dL (11.4-16.0); Lymphocytes # (A) 1.8 k/uL (1.0-4.8); Lymphocytes % (A) 11 %; MCH 29.8 pg (25.0-35.0); MCHC 31.2 g/dL (31.0-37.0); MCV 95.7 fL (80.0-100.0); Mean Platelet Volume 8.6; Monocytes # (A) 0.4 k/uL (0-1.0); Monocytes % (A) 3 %; Neutrophils # (A) 13.2 k/uL (1.3-7.7); Neutrophils % (A) 85 %; Platelet Count 275 k/uL (150-450); RBC 3.33 m/uL (3.80-5.40); RDW 14.7 % (11.5-15.5); WBC 15.7 k/uL (3.8-10.6)
[2020-09-09] MEDS: INSULIN DETEMIR (LEVEMIR) 100 UNIT/ML SYR SQ SCH (10:00)
[2020-09-09] MEDS: INSULIN ASPART (NovoLOG) 100 UNIT/ML VIAL SQ SCH ×7 (10:00→20:40)
[2020-09-09] MEDS: ZINC SULFATE 220 MG CAP PO SCH (10:02)
[2020-09-09] MEDS: DEXAMETHASONE SOD PHOSPHATE 10 MG/ML 1 ML VIAL IV SCH (10:02)
[2020-09-09] MEDS: METOPROLOL TARTRATE 50 MG TAB PO SCH ×2 (10:02→20:47)
[2020-09-09] MEDS: ENOXAPARIN 30 MG/0.3 ML SYRINGE SQ SCH ×2 (10:03→21:41)
[2020-09-09 11:41] LABS: African American GFR (CKD) 118.5 (60.0-200.0); Albumin 2.6 g/dL (3.80-4.90); Albumin/Globulin Ratio 1.44 (1.60-3.17); Calcium 7.8 mg/dL (8.7-10.3); Globulin 1.8 g/dL (1.6-3.3); Non-African American GFR(CKD) 102.3 (60.0-200.0); Potassium 3.9 mmol/L (3.5-5.5); Total Bilirubin 0.2 mg/dL (0.3-1.2); Total Protein 4.4 g/dL (6.2-8.2)
[2020-09-09 11:56] LABS: Glucose,Whole Blood 223 mg/dL (75-99)
[2020-09-09] MEDS: REMDESIVIR 100 MG in SODIUM CHLORIDE 0.9% 250 ML IVPB SCH (14:28)
--- NOTE | 2020-09-09 15:38 | P.PN ---
Subjective Progress Note Date: 09/09/20 Principal diagnosis: severe sepsis Hypertensive urgency in emergency Diabetic ketoacidosis Acute hypoxic respiratory failure COVID-19 pneumonia Mildly elevated liver enzymes 09/09/2020, patient seen eval examined shortness of breath slightly getting better, at times patient has been on room air, intermittent cough is present but severity has improved though, patient remains on Accu-Cheks and insulin, patient remains on aggressive treatment for COVID-19 pneumonia, she is afebrile, oxygen saturation is 97% on supplemental oxygen, labs are reviewed in BUN/creatinine is 16 and 0.5, glucose 250, ID service is following the patient as well, 09/08/2020, patient seen eval examined during the rounds labs reviewed medications reviewed care plan discussed, saw her shortness of breath slightly better patient remains on 2 L oxygen patient is actively getting therapy for COV ID-19 pneumonia and diabetic ketoacidosis, and saturation improved to 100% on 2 L nasal cannula hemodynamic status stable 150/73 respiratory rate normal, absent reviewed white cell count is elevated to 16,000 hemoglobin drop down to 9 hematocrit 27 likely due to aggressive rehydration and dilutional affect, lactic acid has been normalized, but cultures no growth so far, he remains on Lovenox along with insulin, REMdesivir and dexamethasone patient is a 65-year-old with prior medical history of hypertension hypertensive cardiovascular disease and diabetes mellitus and dyslipidemia, for 2 days patient is not feeling well complaining of ongoing nausea and vomiting sugars have been running high she has been also having problems or shortness of breath cough which is dry and nonproductive symptoms of progressive she came into the hospital for further evaluation, she was noted to be hypoxic on 2 L nasal cannula, blood pressure is running high marginally, blood sugars very high over 600, patient has acetone positive, appears to be in diabetic ketoacidosis, she is a long-term smoker smokes about half to one pack a day every day, Patient has significant lab abnormalities suggestive of severe DKA. She has an elevated blood glucose 620. She has a venous pH of 7.0. She has a nondetectable CO2, lactic acid 5.4. She has a mixed acidosis both lactic acidosis and diabetic ketoacidosis. Patient bolused with normal saline, started on insulin. She additionally does have a potassium of 6.5 which is treated with insulin and normal saline. patient [place] testing came back positive, she is not aware of any exposure, she has her first vaccine 1 week ago Objective - Vital Signs Vital signs: Vital Signs Temp 96.7 F L 09/09/20 01:20 Pulse 66 09/09/20 01:20 Resp 18 09/09/20 01:20 BP 164/75 09/09/20 01:20 Pulse Ox 97 09/09/20 01:20 Intake & Output 09/08/20 09/09/20 09/09/20 18:59 06:59 18:59 Weight 49.895 kg - Exam - Constitutional General appearance: average body habitus, cooperative, disheveled, mild distress - EENT Eyes: PERRLA Ears: bilateral: normal - Neck Carotids: bilateral: upstroke normal Thyroid: bilateral: normal size - Respiratory Respiratory: bilateral: CTA - Cardiovascular Rhythm: regular Heart sounds: normal: S1, S2 - Gastrointestinal General gastrointestinal: normal bowel sounds, soft - Integumentary Integumentary: normal turgor - Neurologic Neurologic: CNII-XII intact - Musculoskeletal Musculoskeletal: gait normal, generalized weakness, strength equal bilaterally - Psychiatric Psychiatric: A&O x's 3, appropriate affect, intact judgment & insight - Labs CBC & Chem 7: 09/09/20 07:34 09/09/20 07:34 Labs: Abnormal Lab Results - Last 24 Hours (Table) 09/08/20 09/08/20 09/09/20 Range/Units 12:57 17:12 00:07 WBC (3.8-10.6) k/uL RBC (3.80-5.40) m/uL Hgb (11.4-16.0) gm/dL Hct (34.0-46.0) % Neutrophils # (1.3-7.7) k/uL Chloride (96-109) mmol/L Carbon Dioxide (21.6-31.8) mmol/L Creatinine (0.6-1.5) mg/dL BUN/Creatinine Ratio (12.00-20.00) Ratio Glucose (70-110) mg/dL POC Glucose (mg/dL) 223 H 105 H 58 L (75-99) mg/dL Calcium (8.7-10.3) mg/dL Total Bilirubin (0.3-1.2) mg/dL AST (13-35) U/L Total Protein (6.2-8.2) g/dL Albumin (3.80-4.90) g/dL Albumin/Globulin Ratio (1.60-3.17) g/dL 09/09/20 09/09/20 09/09/20 Range/Units 02:59 05:07 07:11 WBC (3.8-10.6) k/uL RBC (3.80-5.40) m/uL Hgb (11.4-16.0) gm/dL Hct (34.0-46.0) % Neutrophils # (1.3-7.7) k/uL Chloride (96-109) mmol/L Carbon Dioxide (21.6-31.8) mmol/L Creatinine (0.6-1.5) mg/dL BUN/Creatinine Ratio (12.00-20.00) Ratio Glucose (70-110) mg/dL POC Glucose (mg/dL) 158 H 179 H 222 H (75-99) mg/dL Calcium (8.7-10.3) mg/dL Total Bilirubin (0.3-1.2) mg/dL AST (13-35) U/L Total Protein (6.2-8.2) g/dL Albumin (3.80-4.90) g/dL Albumin/Globulin Ratio (1.60-3.17) g/dL 09/09/20 09/09/20 09/09/20 Range/Units 07:34 07:34 11:54 WBC 15.7 H (3.8-10.6) k/uL RBC 3.33 L (3.80-5.40) m/uL Hgb 9.9 L (11.4-16.0) gm/dL Hct 31.9 L (34.0-46.0) % Neutrophils # 13.2 H (1.3-7.7) k/uL Chloride 113 H (96-109) mmol/L Carbon Dioxide 16.0 L (21.6-31.8) mmol/L Creatinine 0.5 L (0.6-1.5) mg/dL BUN/Creatinine Ratio 32.00 H (12.00-20.00) Ratio Glucose 250 H (70-110) mg/dL POC Glucose (mg/dL) 223 H (75-99) mg/dL Calcium 7.8 L (8.7-10.3) mg/dL Total Bilirubin 0.2 L (0.3-1.2) mg/dL AST 51 H (13-35) U/L Total Protein 4.4 L (6.2-8.2) g/dL Albumin 2.60 L (3.80-4.90) g/dL Albumin/Globulin Ratio 1.44 L (1.60-3.17) g/dL Microbiology - Last 24 Hours (Table) 09/07/20 11:19 Blood Culture - Preliminary Blood No Growth after 24 hours Assessment and Plan Assessment: severe sepsis Hypertensive urgency and emergency Diabetic ketoacidosis Acute hypoxic respiratory failure COVID-19 pneumonia Mildly elevated liver enzymes Plan: Continue antihypertensive agent with that blood pressure continued to improve IV hydration per protocol Insulin drip and switched to Levemir and NovoLog sliding scale Glucose monitoring per protocol Advanced diet as tolerated Supplemental oxygen, will check her on room air with activity Deep breathing exercises incentive spirometry IV Decadron IV REMdesivir for 5 days Lovenox 30 mg subcu every 12 Time with Patient: Greater than 30
--- NOTE | 2020-09-09 16:27 | PN ---
PROGRESS NOTE DATE OF SERVICE: 09/09/2020 REASON FOR FOLLOWUP: COVID-19 pneumonia. INTERVAL HISTORY: The patient is currently afebrile. The patient is breathing comfortably currently on room air. The patient denies having any chest pain or shortness of breath. Occasional cough. No further nausea, vomiting, abdominal pain or diarrhea. PHYSICAL EXAMINATION: Blood pressure 164/75, pulse of 66, temperature 96.7. She is 97% on room air. General description is a middle-aged female lying in bed in no distress RESPIRATORY SYSTEM: Unlabored breathing, clear to auscultation anteriorly. HEART: S1, S2. Regular rate and rhythm. ABDOMEN: Soft, no tenderness. LABS: Hemoglobin is 9.9, white count 15.7, BUN of 16, creatinine 0.5. Blood culture negative. DIAGNOSTIC IMPRESSION AND PLAN: 1. Patient with COVID-19 infection overall clinical improvement. He is currently on dexamethasone, Lovenox, zinc, ascorbic acid, remdesivir. 2. Elevated white count more likely steroid effect and will monitor closely. MMODL / IJN: [id number] /
[2020-09-09 17:15] LABS: Glucose,Whole Blood 128 mg/dL (75-99)
[2020-09-09 20:41] LABS: Glucose,Whole Blood 71 mg/dL (75-99)
[2020-09-09] MEDS: ACETAMINOPHEN TAB 325 MG TAB PO PRN (20:47)
[2020-09-09] MEDS: ATORVASTATIN 20 MG TAB PO SCH (20:47)
[2020-09-10 06:47] LABS: Glucose,Whole Blood 148 mg/dL (75-99)
[2020-09-10] MEDS: ENOXAPARIN 30 MG/0.3 ML SYRINGE SQ SCH ×2 (07:41→21:02)
[2020-09-10] MEDS: INSULIN DETEMIR (LEVEMIR) 100 UNIT/ML SYR SQ SCH (07:41)
[2020-09-10] MEDS: INSULIN ASPART (NovoLOG) 100 UNIT/ML VIAL SQ SCH ×7 (07:41→21:02)
[2020-09-10] MEDS: DEXAMETHASONE SOD PHOSPHATE 10 MG/ML 1 ML VIAL IV SCH (07:42)
[2020-09-10] MEDS: METOPROLOL TARTRATE 50 MG TAB PO SCH ×2 (07:42→21:08)
[2020-09-10] MEDS: ZINC SULFATE 220 MG CAP PO SCH (07:42)
[2020-09-10] MEDS: LOSARTAN 25 MG TAB PO SCH ×2 (10:35→21:04)
[2020-09-10 11:10] LABS: Glucose,Whole Blood 169 mg/dL (75-99)
--- NOTE | 2020-09-10 11:37 | PN ---
PROGRESS NOTE A 65-year-old female with COVID-19 pneumonia and DKA. Her diabetes is stable. She is back on her Accu-Chek protocol and home insulin. COVID pneumonia is improving with remdesivir, she is on day 3 to 4, steroids, updraft treatments, inhalers, vitamin D, vitamin C, zinc. CARDIOVASCULAR: S1, S2. LUNGS: Clear. GI: Soft. HEMATOLOGY: Negative Homans. PSYCH: Fair mood and affect. ASSESSMENT: 1. Diabetic ketoacidosis. 2. COVID-19 pneumonia. 3. COVID-19 extreme weakness, fatigue. Prognosis guarded. Continue with remdesivir until day 5 is done and vitamins, etc. Please see further orders. MMODL / IJN: [id number] /
[2020-09-10] MEDS: REMDESIVIR 100 MG in SODIUM CHLORIDE 0.9% 250 ML IVPB SCH (12:00)
--- NOTE | 2020-09-10 14:57 | PN ---
PROGRESS NOTE DATE OF SERVICE: 09/10/2020 REASON FOR FOLLOWUP: COVID-19 pneumonia. INTERVAL HISTORY: The patient is currently afebrile. The patient is breathing comfortably, currently on room air. Has had some nausea and headache, but no vomiting and no chest pain or shortness of breath. Minimal cough. No abdominal pain or diarrhea. PHYSICAL EXAMINATION: Blood pressure 119/67, pulse 66, temperature 98.9. She is 99% on room air. General description is a middle-aged female lying in bed in no distress. Respiratory system: Unlabored breathing, clear to auscultation anteriorly. Heart S1, S2. Regular rate and rhythm. Abdomen is soft, no tenderness. LABS: No new labs have been obtained today. DIAGNOSTIC IMPRESSION AND PLAN: Patient with acute COVID-19 pneumonia in this patient who has shown overall clinical improvement. Remdesivir can be discontinued. Continue with Lovenox, Decadron, zinc and ascorbic acid. Monitor clinical course closely. MMODL / IJN: [id number] /
--- NOTE | 2020-09-10 15:55 | P.PN ---
Subjective Progress Note Date: 09/10/20 Principal diagnosis: severe sepsis Hypertensive urgency in emergency Diabetic ketoacidosis Acute hypoxic respiratory failure COVID-19 pneumonia Mildly elevated liver enzymes 09/10/2020, patient continued to improve slowly, has been on room air, has been ambulating in the room, get short of breath however, patient has received so far 4 doses of IV REM doesn't wear, overall feeling much better than before Ammann labs reviewed medications reviewed 09/09/2020, patient seen eval examined shortness of breath slightly getting better, at times patient has been on room air, intermittent cough is present but severity has improved though, patient remains on Accu-Cheks and insulin, patient remains on aggressive treatment for COVID-19 pneumonia, she is afebrile, oxygen saturation is 97% on supplemental oxygen, labs are reviewed in BUN/creatinine is 16 and 0.5, glucose 250, ID service is following the patient as well, 09/08/2020, patient seen eval examined during the rounds labs reviewed medications reviewed care plan discussed, saw her shortness of breath slightly better patient remains on 2 L oxygen patient is actively getting therapy for COVID-19 pneumonia and diabetic ketoacidosis, and saturation improved to 100% on 2 L nasal cannula hemodynamic status stable 150/73 respiratory rate normal, absent reviewed white cell count is elevated to 16,000 hemoglobin drop down to 9 hematocrit 27 likely due to aggressive rehydration and dilutional affect, lactic acid has been normalized, but cultures no growth so far, he remains on Lovenox along with insulin, REMdesivir and dexamethasone patient is a 65-year-old with prior medical history of hypertension hypertensive cardiovascular disease and diabetes mellitus and dyslipidemia, for 2 days patient is not feeling well complaining of ongoing nausea and vomiting sugars have been running high she has been also having problems or shortness of breath cough which is dry and nonproductive symptoms of progressive she came into the hospital for further evaluation, she was noted to be hypoxic on 2 L nasal cannula, blood pressure is running high marginally, blood sugars very high over 600, patient has acetone positive, appears to be in diabetic ketoacidosis, she is a long-term smoker smokes about half to one pack a day every day, Patient has significant lab abnormalities suggestive of severe DKA. She has an elevated blood glucose 620. She has a venous pH of 7.0. She has a nondetectable CO2, lactic acid 5.4. She has a mixed acidosis both lactic acidosis and diabetic ketoacidosis. Patient bolused with normal saline, started on insulin. She additionally does have a potassium of 6.5 which is treated with insulin and normal saline. patient [place] testing came back positive, she is not aware of any exposure, she has her first vaccine 1 week ago Objective - Vital Signs Vital signs: Vital Signs Temp 97.6 F 09/10/20 12:00 Pulse 91 09/10/20 12:00 Resp 16 09/10/20 12:00 BP 180/68 09/10/20 12:00 Pulse Ox 98 09/10/20 12:00 Intake & Output 09/09/20 09/10/20 09/10/20 18:59 06:59 18:59 Intake Total 480 Balance 480 Weight 49.895 kg Intake: Oral 480 Other: # Voids 1 - Exam - Constitutional General appearance: average body habitus, cooperative, disheveled, mild distress - EENT Eyes: PERRLA Ears: bilateral: normal - Neck Carotids: bilateral: upstroke normal Thyroid: bilateral: normal size - Respiratory Respiratory: bilateral: CTA - Cardiovascular Rhythm: regular Heart sounds: normal: S1, S2 - Gastrointestinal General gastrointestinal: normal bowel sounds, soft - Integumentary Integumentary: normal turgor - Neurologic Neurologic: CNII-XII intact - Musculoskeletal Musculoskeletal: gait normal, generalized weakness, strength equal bilaterally - Psychiatric Psychiatric: A&O x's 3, appropriate affect, intact judgment & insight - Labs CBC & Chem 7: 09/09/20 07:34 09/09/20 07:34 Labs: Abnormal Lab Results - Last 24 Hours (Table) 09/09/20 09/09/20 09/10/20 Range/Units 17:13 20:40 06:45 POC Glucose (mg/dL) 128 H 71 L 148 H (75-99) mg/dL 09/10/20 Range/Units 11:06 POC Glucose (mg/dL) 169 H (75-99) mg/dL Microbiology - Last 24 Hours (Table) 09/07/20 11:19 Blood Culture - Preliminary Blood No Growth after 72 hours Assessment and Plan Assessment: severe sepsis Hypertensive urgency and emergency Diabetic ketoacidosis Acute hypoxic respiratory failure COVID-19 pneumonia Mildly elevated liver enzymes Plan: Continue antihypertensive agent with that blood pressure continued to improve IV hydration per protocol Continue insulin in the form of Levemir and NovoLog sliding scale Glucose monitoring per protocol Advanced diet as tolerated Supplemental oxygen, will check her on room air with activity Deep breathing exercises incentive spirometry IV Decadron IV REMdesivir for 5 days Lovenox 30 mg subcu every 12 Time with Patient: Greater than 30
[2020-09-10 16:42] LABS: Glucose,Whole Blood 120 mg/dL (75-99)
[2020-09-10] MEDS: ACETAMINOPHEN TAB 325 MG TAB PO PRN (19:11)
[2020-09-10 20:29] LABS: Glucose,Whole Blood 167 mg/dL (75-99)
[2020-09-10] MEDS: ATORVASTATIN 20 MG TAB PO SCH (21:08)
[2020-09-10] MEDS ORDERED: amLODIPine 5 MG TAB PO SCH (22:30)
--- NOTE | 2020-09-10 22:35 | P.PN ---
Subjective Progress Note Date: 09/10/20 Principal diagnosis: Acute COVID-19 pneumonia Acute hypoxic respiratory failure currently tapered down to room air Acute diabetic ketoacidosis resolved now Patient is a 65-year-old female was admitted to the hospital due to acute COVID- 19 pneumonia and diabetic ketoacidosis. DKA has resolved and patient was started on subcu insulin. 09/08/2020 Patient is currently resting in bed comfortably. Awake alert oriented x3. Still feels very weak and lethargic. Blood pressure is elevated with SBP in 190s patient was started back on home dose of losartan and if not controlled No rvasc will be added. Otherwise patient is being continued dexamethasone, Lovenox and insulin sliding scale. Remdesivir day 4 Pulmonary and ID is on board. Encourage PT OT and possible discharge in the next 24 hours. Current medications reviewed. Objective - Vital Signs Vital signs: Vital Signs Temp 98.2 F 09/10/20 16:00 Pulse 63 09/10/20 16:00 Resp 16 09/10/20 16:00 BP 195/69 09/10/20 16:00 Pulse Ox 99 09/10/20 16:00 Intake & Output 09/10/20 09/10/20 09/11/20 06:59 18:59 06:59 Intake Total 480 250 Balance 480 250 Weight 49.895 kg Intake: Intake, IV Titration 250 Amount Remdesivir 100 mg In 250 Sodium Chloride 0.9% 250 ml @ 250 mls/hr IVPB DAILY@1300 [facility] Rx#: [id number] Oral 480 Other: # Voids 1 - Exam PHYSICAL EXAMINATION: Patient is lying in the bed comfortably, no acute distress, awake alert and oriented.. HEENT: Normocephalic. Neck is supple. Pupils reactive. Nostrils clear. Oral cavity is moist. Ears reveal no drainage. Neck reveals no JVD, carotid bruits, or thyromegaly. CHEST EXAMINATION: Trachea is central. Symmetrical expansion. Lung chavez clear to auscultation and percussion. CARDIAC: Normal S1, S2 with no gallops. No murmurs ABDOMEN: Soft. Bowel sounds normal. No organomegaly. No abdominal bruits. Extremities: reveal no edema. No clubbing or cyanosis Neurologically awake, alert, oriented x3 with well-coordinated movements. No focal deficits noted Skin: No rash or skin lesions. Psychiatric: Coperative. Nonsuicidal Musculoskeletal: No joint swelling or deformity. Normal range of motion. - Labs CBC & Chem 7: 09/09/20 07:34 09/09/20 07:34 Labs: Abnormal Lab Results - Last 24 Hours (Table) 09/10/20 09/10/20 09/10/20 Range/Units 06:45 11:06 16:36 POC Glucose (mg/dL) 148 H 169 H 120 H (75-99) mg/dL 09/10/20 Range/Units 20:26 POC Glucose (mg/dL) 167 H (75-99) mg/dL Microbiology - Last 24 Hours (Table) 09/07/20 11:19 Blood Culture - Preliminary Blood No Growth after 72 hours Assessment and Plan Assessment: Acute COVID-19 pneumonia Acute hypoxic respiratory failure currently tapered down to room air Acute diabetic ketoacidosis resolved now Diabetes type 2 Mild elevated liver enzymes Accelerated hypertension DVT prophylaxis Lovenox Plan: Patient will be continued on dexamethasone 6 mg IV daily and Lovenox 30 mg every 12. Patient was started back on subcu insulin and titrate dose as needed. Patient was also started back on metoprolol and losartan and add Norvasc if the blood pressure is not controlled. Patient received day 4 of remdesivir. Continue with contact and droplet precautions. Further recommendations based on the clinical course. Time with Patient: Greater than 30
[2020-09-11 06:37] LABS: Glucose,Whole Blood 302 mg/dL (75-99)
[2020-09-11] MEDS: INSULIN DETEMIR (LEVEMIR) 100 UNIT/ML SYR SQ SCH (08:16)
[2020-09-11] MEDS: METOPROLOL TARTRATE 50 MG TAB PO SCH ×2 (08:16→21:52)
[2020-09-11] MEDS: ZINC SULFATE 220 MG CAP PO SCH (08:16)
[2020-09-11] MEDS: ENOXAPARIN 30 MG/0.3 ML SYRINGE SQ SCH ×2 (08:16→23:56)
[2020-09-11] MEDS: DEXAMETHASONE SOD PHOSPHATE 10 MG/ML 1 ML VIAL IV SCH (08:16)
[2020-09-11] MEDS: INSULIN ASPART (NovoLOG) 100 UNIT/ML VIAL SQ SCH ×7 (08:16→21:47)
[2020-09-11] MEDS: LOSARTAN 25 MG TAB PO SCH ×2 (08:17→21:49)
[2020-09-11 09:36] LABS: Basophils % (A) 0 %; Eosinophils % (A) 1 %; HGB 10.9 gm/dL (11.4-16.0); Lymphocytes # (A) 1.3 k/uL (1.0-4.8); Lymphocytes % (A) 13 %; MCH 31.7 pg (25.0-35.0); MCV 93.2 fL (80.0-100.0); Mean Platelet Volume 8.7; Monocytes # (A) 0.3 k/uL (0-1.0); Monocytes % (A) 3 %; Neutrophils # (A) 7.7 k/uL (1.3-7.7); Neutrophils % (A) 82 %; Platelet Count 271 k/uL (150-450); RBC 3.43 m/uL (3.80-5.40); RDW 13.7 % (11.5-15.5); WBC 9.5 k/uL (3.8-10.6)
[2020-09-11 09:52] LABS: African American GFR (CKD) >90 (>60 ml/min/1.73 sqM); Anion Gap 4 mmol/L; Blood Urea Nitrogen 16 mg/dL (7-17); Calcium 7.7 mg/dL (8.4-10.2); Carbon Dioxide 22 mmol/L (22-30); Chloride 105 mmol/L (98-107); Glucose 412 mg/dL (74-99); LDH 891 U/L (313-618); Non-African American GFR(CKD) >90 (>60 ml/min/1.73 sqM); Potassium 3.5 mmol/L (3.5-5.1); Sodium 131 mmol/L (137-145)
[2020-09-11 11:10] LABS: Glucose,Whole Blood 304 mg/dL (75-99)
--- NOTE | 2020-09-11 11:35 | P.PN ---
Subjective Progress Note Date: 09/11/20 Principal diagnosis: severe sepsis Hypertensive urgency in emergency Diabetic ketoacidosis Acute hypoxic respiratory failure COVID-19 pneumonia Mildly elevated liver enzymes 09/11/2020, patient continued do well, shortness of breath continued to improve, slight dry nonproductive cough is present, blood pressure is still not very well controlled, today patient will get last does of IV REMdesivir, after that patient is stable from pulmonary standpoint for discharge, follow-up with telemetry medicine as outpatient 09/10/2020, patient continued to improve slowly, has been on room air, has been ambulating in the room, get short of breath however, patient has received so far 4 doses of IV REM doesn't wear, overall feeling much better than before Ammann labs reviewed medications reviewed 09/09/2020, patient seen nirmal examined shortness of breath slightly getting bett er, at times patient has been on room air, intermittent cough is present but severity has improved though, patient remains on Accu-Cheks and insulin, patient remains on aggressive treatment for COVID-19 pneumonia, she is afebrile, oxygen saturation is 97% on supplemental oxygen, labs are reviewed in BUN/creatinine is 16 and 0.5, glucose 250, ID service is following the patient as well, 09/08/2020, patient seen nirmal examined during the rounds labs reviewed medications reviewed care plan discussed, saw her shortness of breath slightly better patient remains on 2 L oxygen patient is actively getting therapy for COVID-19 pneumonia and diabetic ketoacidosis, and saturation improved to 100% on 2 L nasal cannula hemodynamic status stable 150/73 respiratory rate normal, absent reviewed white cell count is elevated to 16,000 hemoglobin drop down to 9 hematocrit 27 likely due to aggressive rehydration and dilutional affect, lactic acid has been normalized, but cultures no growth so far, he remains on Lovenox along with insulin, REMdesivir and dexamethasone patient is a 65-year-old with prior medical history of hypertension hypertensive cardiovascular disease and diabetes mellitus and dyslipidemia, for 2 days patient is not feeling well complaining of ongoing nausea and vomiting sugars delatorre ve been running high she has been also having problems or shortness of breath cough which is dry and nonproductive symptoms of progressive she came into the hospital for further evaluation, she was noted to be hypoxic on 2 L nasal cannula, blood pressure is running high marginally, blood sugars very high over 600, patient has acetone positive, appears to be in diabetic ketoacidosis, she is a long-term smoker smokes about half to one pack a day every day, Patient has significant lab abnormalities suggestive of severe DKA. She has an elevated blood glucose 620. She has a venous pH of 7.0. She has a nondetectable CO2, lactic acid 5.4. She has a mixed acidosis both lactic acidosis and diabetic ketoacidosis. Patient bolused with normal saline, started on insulin. She additionally does have a potassium of 6.5 which is treated with insulin and normal saline. patient [place] testing came back positive, she is not aware of any exposure, she has her first vaccine 1 week ago Objective - Vital Signs Vital signs: Vital Signs Temp 97.7 F 09/11/20 08:00 Pulse 71 09/11/20 08:00 Resp 16 09/11/20 08:00 BP 200/73 09/11/20 08:00 Pulse Ox 100 09/11/20 08:00 Intake & Output 09/10/20 09/11/20 09/11/20 18:59 06:59 18:59 Intake Total 250 540 Balance 250 540 Weight 49.895 kg Intake: Intake, IV Titration 250 Amount Remdesivir 100 mg In 250 Sodium Chloride 0.9% 250 ml @ 250 mls/hr IVPB DAILY@1300 [facility] Rx#: [id number] Oral 540 - Exam - Constitutional General appearance: average body habitus, cooperative, disheveled, mild distress - EENT Eyes: PERRLA Ears: bilateral: normal - Neck Carotids: bilateral: upstroke normal Thyroid: bilateral: normal size - Respiratory Respiratory: bilateral: CTA - Cardiovascular Rhythm: regular Heart sounds: normal: S1, S2 - Gastrointestinal General gastrointestinal: normal bowel sounds, soft - Integumentary Integumentary: normal turgor - Neurologic Neurologic: CNII-XII intact - Musculoskeletal Musculoskeletal: gait normal, generalized weakness, strength equal bilaterally - Psychiatric Psychiatric: A&O x's 3, appropriate affect, intact judgment & insight - Labs CBC & Chem 7: 09/11/20 09:01 09/11/20 09:01 Labs: Abnormal Lab Results - Last 24 Hours (Table) 09/10/20 09/10/20 09/11/20 Range/Units 16:36 20:26 06:35 RBC (3.80-5.40) m/uL Hgb (11.4-16.0) gm/dL Hct (34.0-46.0) % Sodium (137-145) mmol/L Glucose (74-99) mg/dL POC Glucose (mg/dL) 120 H 167 H 302 H (75-99) mg/dL Calcium (8.4-10.2) mg/dL Lactate Dehydrogenase (313-618) U/L C-Reactive Protein (<1.0) mg/dL 09/11/20 09/11/20 09/11/20 Range/Units 09:01 09:01 11:07 RBC 3.43 L (3.80-5.40) m/uL Hgb 10.9 L (11.4-16.0) gm/dL Hct 32.0 L (34.0-46.0) % Sodium 131 L (137-145) mmol/L Glucose 412 H (74-99) mg/dL POC Glucose (mg/dL) 304 H (75-99) mg/dL Calcium 7.7 L (8.4-10.2) mg/dL Lactate Dehydrogenase 891 H (313-618) U/L C-Reactive Protein 1.0 H (<1.0) mg/dL Microbiology - Last 24 Hours (Table) 09/07/20 11:19 Blood Culture - Preliminary Blood No Growth after 72 hours Assessment and Plan Assessment: severe sepsis Hypertensive urgency and emergency Diabetic ketoacidosis Acute hypoxic respiratory failure COVID-19 pneumonia Mildly elevated liver enzymes Plan: Continue antihypertensive agent with that blood pressure continued to improve IV hydration per protocol Continue insulin in the form of Levemir and NovoLog sliding scale Glucose monitoring per protocol Advanced diet as tolerated Supplemental oxygen, will check her on room air with activity, DC oxygen 8 saturation more than 92% Deep breathing exercises incentive spirometry IV Decadron, can be switched to oral for another 5 days to a week as outpatient at the time of discharge IV REMdesivir for 5 days Lovenox 30 mg subcu every 12, after discharge can be switched to aspirin 81 mg once a day Follow-up telemedicine in 1-2 weeks Time with Patient: Greater than 30
[2020-09-11] MEDS: REMDESIVIR 100 MG in SODIUM CHLORIDE 0.9% 250 ML IVPB SCH (12:16)
--- NOTE | 2020-09-11 15:11 | PN ---
PROGRESS NOTE DATE OF SERVICE: 09/11/2020 REASON FOR FOLLOWUP: COVID-19 pneumonia. INTERVAL HISTORY: The patient is currently afebrile. The patient is feeling better. Breathing comfortably. Patient denies having any chest pain, shortness of breath or cough. No nausea, no vomiting. No abdominal pain, no diarrhea. PHYSICAL EXAMINATION: Blood pressure 188/80 with a pulse of 71, temperature 98.4. She is 100% on room air. General description is a middle-aged female lying in bed in no distress. RESPIRATORY SYSTEM: Unlabored breathing, clear to auscultation anteriorly. HEART: S1, S2. Regular rate and rhythm. ABDOMEN: Soft, no tenderness. LABS: Hemoglobin 10.9, white count 9.5, BUN of 16, creatinine 0.54. DIAGNOSTIC IMPRESSION AND PLAN: Patient with acute COVID-19 infection. Overall clinical improvement. The patient is currently on room air. Steroids and remdesivir can be safely discontinued. Some on discharge. MMODL / IJN: [id number] /
[2020-09-11 16:30] LABS: Glucose,Whole Blood 222 mg/dL (75-99)
[2020-09-11] MEDS: NIFEdipine XL 30 MG TAB.ER.24 PO SCH (16:30)
[2020-09-11 20:41] LABS: Glucose,Whole Blood 266 mg/dL (75-99)
[2020-09-11] MEDS: ATORVASTATIN 20 MG TAB PO SCH (21:49)
[2020-09-11 23:56] VITALS: RESP 18
[2020-09-12 07:49] LABS: Glucose,Whole Blood 279 mg/dL (75-99)
[2020-09-12 07:50] VITALS: BP 170/70; PULSE 61; TEMP 98.1
[2020-09-12] MEDS: INSULIN DETEMIR (LEVEMIR) 100 UNIT/ML SYR SQ SCH (08:25)
[2020-09-12] MEDS: INSULIN ASPART (NovoLOG) 100 UNIT/ML VIAL SQ SCH ×4 (08:26→12:10)
[2020-09-12] MEDS: DEXAMETHASONE SOD PHOSPHATE 10 MG/ML 1 ML VIAL IV SCH (08:26)
[2020-09-12] MEDS: NIFEdipine XL 30 MG TAB.ER.24 PO SCH (08:27)
[2020-09-12] MEDS: ZINC SULFATE 220 MG CAP PO SCH (08:27)
[2020-09-12] MEDS: LOSARTAN 25 MG TAB PO SCH (08:27)
[2020-09-12] MEDS: ENOXAPARIN 30 MG/0.3 ML SYRINGE SQ SCH (08:27)
[2020-09-12] MEDS: METOPROLOL TARTRATE 50 MG TAB PO SCH (08:27)
--- NOTE | 2020-09-12 08:34 | P.PN ---
Subjective Progress Note Date: 09/12/20 Principal diagnosis: severe sepsis Hypertensive urgency in emergency Diabetic ketoacidosis Acute hypoxic respiratory failure COVID-19 pneumonia Mildly elevated liver enzymes 09/12/2020, patient seen eval examined during the rounds labs reviewed medications reviewed care plan discussed, mild shortness of breath is present but however oxygen saturation improved now, patient has been on room air, respiratory status stable, finished IV REMdesivir therapy 09/11/2020, patient continued do well, shortness of breath continued to improve, slight dry nonproductive cough is present, blood pressure is still not very well controlled, today patient will get last does of IV REMdesivir, after that patient is stable from pulmonary standpoint for discharge, follow-up with telemetry medicine as outpatient 09/10/2020, patient continued to improve slowly, has been on room air, has been ambulating in the room, get short of breath however, patient has received so far 4 doses of IV REM doesn't wear, overall feeling much better than before Ammann labs reviewed medications reviewed 09/09/2020, patient seen eval examined shortness of breath slightly getting better, at times patient has been on room air, intermittent cough is present but severity has improved though, patient remains on Accu-Cheks and insulin, patient remains on aggressive treatment for COVID-19 pneumonia, she is afebrile, oxygen saturation is 97% on supplemental oxygen, labs are reviewed in BUN/creatinine is 16 and 0.5, glucose 250, ID service is following the patient as well, 09/08/2020, patient seen eval examined during the rounds labs reviewed medications reviewed care plan discussed, saw her shortness of breath slightly better patient remains on 2 L oxygen patient is actively getting therapy for C OVID-19 pneumonia and diabetic ketoacidosis, and saturation improved to 100% on 2 L nasal cannula hemodynamic status stable 150/73 respiratory rate normal, absent reviewed white cell count is elevated to 16,000 hemoglobin drop down to 9 hematocrit 27 likely due to aggressive rehydration and dilutional affect, lactic acid has been normalized, but cultures no growth so far, he remains on Lovenox along with insulin, REMdesivir and dexamethasone patient is a 65-year-old with prior medical history of hypertension hypertensive cardiovascular disease and diabetes mellitus and dyslipidemia, for 2 days patient is not feeling well complaining of ongoing nausea and vomiting sugars have been running high she has been also having problems or shortness of breath cough which is dry and nonproductive symptoms of progressive she came into the hospital for further evaluation, she was noted to be hypoxic on 2 L nasal cannula, blood pressure is running high marginally, blood sugars very high over 600, patient has acetone positive, appears to be in diabetic ketoacidosis, she is a long-term smoker smokes about half to one pack a day every day, Patient has significant lab abnormalities suggestive of severe DKA. She has an elevated blood glucose 620. She has a venous pH of 7.0. She has a nondetectable CO2, lactic acid 5.4. She has a mixed acidosis both lactic acidosis and diabetic ketoacidosis. Patient bolused with normal saline, started on insulin. She additionally does have a potassium of 6.5 which is treated with insulin and normal saline. patient [place] testing came back positive, she is not aware of any exposure, she has her first vaccine 1 week ago Objective - Vital Signs Vital signs: Vital Signs Temp 98.1 F 09/12/20 07:25 Pulse 61 09/12/20 07:25 Resp 18 09/12/20 07:25 BP 170/70 09/12/20 07:25 Pulse Ox 97 09/12/20 07:56 Intake & Output 09/11/20 09/12/20 09/12/20 18:59 06:59 18:59 Intake Total 240 Balance 240 Intake: Oral 240 Other: # Voids 4 2 - Exam - Constitutional General appearance: average body habitus, cooperative, disheveled, mild distress - EENT Eyes: PERRLA Ears: bilateral: normal - Neck Carotids: bilateral: upstroke normal Thyroid: bilateral: normal size - Respiratory Respiratory: bilateral: CTA - Cardiovascular Rhythm: regular Heart sounds: normal: S1, S2 - Gastrointestinal General gastrointestinal: normal bowel sounds, soft - Integumentary Integumentary: normal turgor - Neurologic Neurologic: CNII-XII intact - Musculoskeletal Musculoskeletal: gait normal, generalized weakness, strength equal bilaterally - Psychiatric Psychiatric: A&O x's 3, appropriate affect, intact judgment & insight - Labs CBC & Chem 7: 09/11/20 09:01 09/11/20 09:01 Labs: Abnormal Lab Results - Last 24 Hours (Table) 09/11/20 09/11/20 09/11/20 Range/Units 09:01 09:01 11:07 RBC 3.43 L (3.80-5.40) m/uL Hgb 10.9 L (11.4-16.0) gm/dL Hct 32.0 L (34.0-46.0) % Sodium 131 L (137-145) mmol/L Glucose 412 H (74-99) mg/dL POC Glucose (mg/dL) 304 H (75-99) mg/dL Calcium 7.7 L (8.4-10.2) mg/dL Lactate Dehydrogenase 891 H (313-618) U/L C-Reactive Protein 1.0 H (<1.0) mg/dL 09/11/20 09/11/20 09/12/20 Range/Units 16:23 20:31 07:47 RBC (3.80-5.40) m/uL Hgb (11.4-16.0) gm/dL Hct (34.0-46.0) % Sodium (137-145) mmol/L Glucose (74-99) mg/dL POC Glucose (mg/dL) 222 H 266 H 279 H (75-99) mg/dL Calcium (8.4-10.2) mg/dL Lactate Dehydrogenase (313-618) U/L C-Reactive Protein (<1.0) mg/dL Microbiology - Last 24 Hours (Table) 09/07/20 11:19 Blood Culture - Preliminary Blood No Growth after 96 hours Assessment and Plan Assessment: severe sepsis Hypertensive urgency and emergency Diabetic ketoacidosis Acute hypoxic respiratory failure COVID-19 pneumonia Mildly elevated liver enzymes Plan: Continue antihypertensive agent with that blood pressure continued to improve Patient tolerating by mouth well Continue insulin in the form of Levemir and NovoLog sliding scale Glucose monitoring per protocol Advanced diet as tolerated Deep breathing exercises incentive spirometry IV Decadron, can be switched to oral for another 5 days to a week as outpatient at the time of discharge Status post IV REMdesivir for 5 days Lovenox 30 mg subcu every 12, after discharge can be switched to aspirin 81 mg once a day Follow-up telemedicine in 1-2 weeks Time with Patient: Greater than 30
[2020-09-12 12:06] LABS: Glucose,Whole Blood 229 mg/dL (75-99)
== END 2020-09-12 13:25 | disposition home or self-care (01) | DRG 871 ==
LOC: EC 07:18 → 2SICU 08:38 → 4SSUR 09-08 20:22 → 1SOBS 09-09 15:38
PROVIDERS: ADMIT Family Medicine; ATTEND Family Medicine
PROC: XW033E5 Introduction of Remdesivir Anti-infective into Peripheral Vein, Percutaneous Approach, New Technology Group 5 (ICD-10-PCS; principal; 2020-09-07)
DX: A41.89 Other specified sepsis (principal); E11.10 Type 2 diabetes mellitus with ketoacidosis without coma; J96.01 Acute respiratory failure with hypoxia; U07.1 COVID-19; J12.82 Pneumonia due to coronavirus disease 2019; E87.2 Acidosis; I16.1 Hypertensive emergency; A08.39 Other viral enteritis; E87.5 Hyperkalemia; E86.0 Dehydration; R65.20 Severe sepsis without septic shock; R79.89 Other specified abnormal findings of blood chemistry; I11.9 Hypertensive heart disease without heart failure; E78.5 Hyperlipidemia, unspecified; F17.210 Nicotine dependence, cigarettes, uncomplicated; Z79.4 Long term (current) use of insulin; Z79.899 Other long term (current) drug therapy
CPT/HCPCS: 36415; 71045; 80048; 80051; 80053; 81001; 82009; 82565; 82728; 82803; 82947; 83605; 83615; 83735; 84100; 84145; 84484; 84520; 85025; 85379; 85610; 85730; 86140; 87040; 87635; 93005; 94760; 96361; 96374; 99291